=== PATIENT | male | born 1935 | race Asian ===

== ENCOUNTER 2018-01-02 16:17 | Observation (INO) | payer OTHER ==
--- NOTE | 2018-01-02 16:23 | PDOC ---
History of Present Illness - General Chief Complaint: Weakness Stated Complaint: LEFT LEG WEAKNESS SLIGHT LEFT FACIAL TINGLING Time Seen by Provider: 01/02/18 16:22 History Source: Patient Exam Limitations: No Limitations - History of Present Illness Initial Comments: 01/02/18 16:48 82y M no known pmhx (Beside recent dx of shingles) presents with ~2 days of weakness/slurred speech. Pt states that he has been feeling fine wit hthe exception of when he is going for a walk with his , he noticed he has started veering to the left. He also noticed that when he speaks, he feels it is off. He notes his symptoms were very subtle and he wasnt sure what to make of it, but today, he was walking with his when he stumbled over a very small uneveness in the ground (Which noramlly would not give him any problems) so he decided to come to the ED. The pt deneis any headache, dizzines,s vision changes, cp, sob, palpitations, nv, fever/chills, abd pain, back pain, hneck pain, lightheadedness, numbness tingling or suzie weakness, lower extremity swelling. tPA Exclusion Checklist 0-3hr - Time Elapsed Date last known well: 12/31/17 Time last known well: 16:00 Elaspsed time: 2 Day(s) and 3 Hour(s) and 27 Minutes - Thrombolytic Therapy Candidate Is the patient eligible for Thrombolytic Therapy?: No - Ineligibility reason(s) Reasons No tPA given: Outside of window - delayed arrival NIH Stroke Scale - Last Known Well Date/Time & Onset Date Last Known Well: 12/31/17 Time Last Known Well: 18:00 (estimated) - Initial Evaluation Level of consciousness: Alert Ask patient the month and their age: Answers both correctly Ask patient to open & close eyes; make fist and let go: Obeys both correctly Best gaze (horizontal eye movement): Normal Visual field testing: No visual field loss Facial paresis (Show teeth/raise eyebrows/close eyes tight): Normal symmetrical movement Motor Function: Left Arm: Normal Motor Function: Right Arm: Normal (extends arm 90 (or 45) degrees for 10 seconds without drift Motor Function: Left Leg: Normal (extends leg 30 degrees for 5 seconds without drift) Motor Function: Right Leg: Normal (extends leg 30 degrees for 5 seconds without drift) Limb Ataxia: No ataxia Sensory(Use pinprick test arms,legs,trunk,face/side to side): Normal Best language (Describe picture, name items, read sentences): No Aphasia Dysarthria (read several words): Normal articulation Extinction and Inattention: No abnormality - Total Score NIH Stroke Scale Score: 0 Past History - Past Medical History Allergies/Adverse Reactions: Allergies Allergy/AdvReac Type Severity Reaction Status Date / Time No Known Allergies Allergy Unverified 01/02/18 16:20 Home Medications: Ambulatory Orders NK [No Known Home Medication] 01/02/18 Review of Systems - Review of Systems Able to Perform ROS?: Yes Comments:: 01/02/18 16:55 Constitutional - no reported Fever, Chills, HEENT: no reported vision changes, sore throat Respiratory: no reported cough, sob, hemoptysis Cardiac: no reported chest pain, palpitations, light headedness, leg swelling Abd/GI: no reported abd pain, nausea, vomiting, blood per rectum, melena, diarrhea : no reported dysuria, frequency, discharge Musculskelatal - no reported back pain, joint swelling skin - no reported bruising, erythema, rash neurological:weakness, slurred speech no reported headache, numbness, focal weakness, tingling, ataxia, hematologic: no reported easy bruising, easy bleeding *Physical Exam - Physical Exam Comments: 01/02/18 16:57 GENERAL: The patient is awake, alert, and fully oriented, Nontoxic - in no acute distress. HEAD: Normocephalic, atraumatic. EYES: extraocular movements intact, sclera anicteric, conjunctiva clear. ENT: Normal voice, Moist mucous membranes. NECK: Normal range of motion, supple LUNGS: Breath sounds equal, clear to auscultation bilaterally. No wheezes, no rhonchi, no rales. HEART: Regular rate and rhythm, normal S1 and S2 without murmur, rub or gallop. ABDOMEN: Soft, nontender, normoactive bowel sounds. No guarding, no rebound. No CVA tenderness EXTREMITIES: Normal range of motion, no edema. No clubbing or cyanosis. No cords, erythema, or tenderness. PSYCH: Normal mood, normal affect. SKIN: Warm, Dry, normal turgor NEURO: Mental status: The patient is oriented x3. Cranial nerves: Cranial nerves II through XII are intact Motor: The upper extremities are 5 over 5 in all muscle groups. The lower extremities are 5 over 5 in all muscle groups. Negative pronator drift Sensation: Sensation is intact to light touch throughout. romberg negative Cerebellar: Mqqune-casrjb-[id number] is normal in both upper extremities. Heel-knee- blandon is normal in both lower extremities. rapid alternating movements are normal. Gait: Normal. Heart Score/ECG Review - ECG Impressions Comment:: 01/02/18 16:58 Twelve-lead EKG was performed and reviewed by me. There is normal sinus rhythm with a normal rate. Rate of 77 The axis is normal. The intervals are normal. There is normal R wave progression There are no ST or T wave abnormalities. Impression: Normal twelve-lead EKG ED Treatment Course - LABORATORY CBC & Chemistry Diagram: 01/02/18 16:54 01/02/18 16:54 Medical Decision Making - Medical Decision Making 01/02/18 16:58 82-year-old gentleman no significant past medical history presenting with complaint of symptoms concerning for CVA. His exam is essentially unremarkable with a normal neurologic exam. Suspicious for mild CVA. Will obtain CT head, blood work will discuss with neurology Will obtain labs, ekg will reassess 01/02/18 18:[address] neg for bleed on my read - will give ASA will discuss with neurology regarding disposition 01/02/18 18:[address] Washington requests observation with MRI in the morning. Dr. washington on his way to see the pt. consult place din computer *DC/Admit/Observation/Transfer Diagnosis at time of Disposition: Weakness Hypertension Qualifiers: Hypertension type: unspecified Qualified Code(s): I10 - Essential (primary) hypertension - Referrals Referrals: Danisha Washington MD [Staff Physician] - - Patient Instructions - Post Discharge Activity
[2018-01-02 17:05] LABS: BASO % 0.4 % (0-2.0); EOS % 1.4 % (0-4.5); HEMATOCRIT 41.7 % (35.4-49); HEMOGLOBIN 13.8 GM/dl (11.7-16.9); LYMPH % 36.1 % (8-40); MCH 31.5 pg (25.7-33.7); MEAN CELL VOLUME 95.7 fl (80-96); MONO % 10.5 % (3.8-10.2); NEUT % 51.6 % (42.8-82.8); PLATELET COUNT 181 K/MM3 (134-434); RBC 4.36 M/mm3 (4.00-5.60); RDW 12.9 % (11.9-15.9); WHITE BLOOD COUNT 5.8 K/mm3 (4.0-10.8)
[2018-01-02 17:15] LABS: INR 1.08 (0.82-1.09); PROTHROMBIN TIME (PATIENT) 12.1 SEC (10.2-13.0)
[2018-01-02 17:22] LABS: PH,URINE 6.5 (4.5-8); URINE APPEARANCE Clear; URINE BILIRUBIN Negative (NEGATIVE); URINE COLOR Yellow; URINE GLUCOSE (UA) Negative (NEGATIVE); URINE KETONE Negative (NEGATIVE); URINE LEUK ESTERASE Negative (NEGATIVE); URINE NITRITE Negative (NEGATIVE); URINE PROTEIN Negative (NEGATIVE); URINE UROBILINOGEN 0.2 (0.2-1.0)
[2018-01-02 17:30] LABS: ALBUMIN 3.8 g/dl (3.5-5.0); ALK PHOS 56 U/L (32-92); ANION GAP 7 (8-16); BILIRUBIN,TOTAL 0.7 mg/dl (0.2-1.0); BLOOD UREA NITROGEN 19 mg/dl (7-18); CHLORIDE 106 mmol/L (98-107); CO2 28 mmol/L (22-28); CREATININE 1.3 mg/dl (0.6-1.3); GLUCOSE,RANDOM 95 mg/dl (74-106); POTASSIUM 4.1 mmol/L (3.5-5.1); SGOT/AST 18 U/L (10-42); SGPT/ALT 11 U/L (10-40); SODIUM 141 mmol/L (136-145); TOT PROT 7.2 g/dl (6.4-8.3)
[2018-01-02 17:36] LABS: URINE RBC 0-2 /hpf (0-3); URINE WBC 0-1 (0-2)
[2018-01-02] MEDS ORDERED: ASPIRIN 81 MG CHEWABLE TABLETS PO ONE (18:11)
[2018-01-02] MEDS ORDERED: ASPIRIN 325 MG TABLET ONE (18:16)
--- NOTE | 2018-01-02 19:32 | PDOC ---
*Physical Exam - Vital Signs Last Vital Signs Temp Pulse Resp BP Pulse Ox 97.9 F 72 16 153/88 99 01/02/18 16:20 01/02/18 18:24 01/02/18 18:24 01/02/18 18:24 01/02/18 16:20 ED Treatment Course - LABORATORY CBC & Chemistry Diagram: 01/02/18 16:54 01/02/18 16:54 - ADDITIONAL ORDERS Additional order review: Laboratory Results 01/02/18 01/02/18 01/02/18 17:09 16:57 16:57 PT with INR INR Sodium Potassium Chloride Carbon Dioxide Anion Gap BUN Creatinine Creat Clearance w eGFR Random Glucose Calcium Total Bilirubin AST ALT Alkaline Phosphatase Creatine Kinase 68 Troponin I < 0.03 Total Protein Albumin Urine Color Yellow Urine Appearance Clear Urine pH 6.5 Ur Specific [place] 1.010 Urine Protein Negative Urine Glucose (UA) Negative Urine Ketones Negative Urine Blood Trace-intact H Urine Nitrite Negative Urine Bilirubin Negative Urine Urobilinogen 0.2 Ur Leukocyte Esterase Negative Urine RBC 0-2 Urine WBC 0-1 01/02/18 01/02/18 16:54 16:54 PT with INR 12.1 INR 1.08 Sodium 141 Potassium 4.1 Chloride 106 Carbon Dioxide 28 Anion Gap 7 L BUN 19 H Creatinine 1.3 Creat Clearance w eGFR 52.85 Random Glucose 95 Calcium 9.0 Total Bilirubin 0.7 AST 18 ALT 11 Alkaline Phosphatase 56 Creatine Kinase Troponin I Total Protein 7.2 Albumin 3.8 Urine Color Urine Appearance Urine pH Ur Specific [place] Urine Protein Urine Glucose (UA) Urine Ketones Urine Blood Urine Nitrite Urine Bilirubin Urine Urobilinogen Ur Leukocyte Esterase Urine RBC Urine WBC 01/02/18 16:54 RBC 4.36 MCV 95.7 MCHC 33.0 RDW 12.9 MPV 7.0 L Neutrophils % 51.6 Lymphocytes % 36.1 Monocytes % 10.5 H Eosinophils % 1.4 Basophils % 0.4 - Medications Given in the ED: ED Medications Discontinued Medications Generic Name Dose Route Start Last Admin Trade Name Freq PRN Reason Stop Dose Admin Aspirin 324 mg 01/02/18 18:11 01/02/18 18:17 Asa - PO 01/02/18 18:12 324 mg ONCE ONE Administration *DC/Admit/Observation/Transfer Diagnosis at time of Disposition: Weakness Hypertension Qualifiers: Hypertension type: unspecified Qualified Code(s): I10 - Essential (primary) hypertension - Discharge Dispostion Decision to Admit order: Yes - Referrals Referrals: Danisha Washington MD [Staff Physician] - - Patient Instructions - Post Discharge Activity
--- NOTE | 2018-01-02 19:42 | CON.NEURO ---
Consult Consult Specialty:: [facility] Referred by:: Jeancarlos - History of Present Illness History of Present Illness: 82 man pleasant Very pleasant man with no medical history Seen patient in [facility] ER Feels much better is at the bedside No fall No recent travel - History Source History Provided By: Patient Limitations to Obtaining History: No Limitations - Alcohol/Substance Use Hx Alcohol Use: Yes (RARE) - Smoking History Smoking history: Never smoked Have you smoked in the past 12 months: No Home Medications - Allergies Allergies/Adverse Reactions: Allergies Allergy/AdvReac Type Severity Reaction Status Date / Time No Known Allergies Allergy Unverified 01/02/18 16:20 - Home Medications Home Medications: Ambulatory Orders NK [No Known Home Medication] 01/02/18 Family Disease History - Family Disease History Family History: Denies (CVA) Review of Systems - Review of Systems Constitutional: reports: No Symptoms Eyes: reports: No Symptoms Neurological: reports: Incoordination, Numbness Physical Exam-Neuro Vital Signs: Vital Signs Temperature 97.9 F 01/02/18 16:20 Pulse Rate 72 01/02/18 18:24 Respiratory Rate 16 01/02/18 18:24 Blood Pressure 153/88 01/02/18 18:24 O2 Sat by Pulse Oximetry (%) 99 01/02/18 16:20 Constitutional: Yes: Well Nourished Neck: Yes: WNL Labs: CBC, BMP 01/02/18 16:54 01/02/18 16:54 INR, PTT INR 1.08 (0.82-1.09) 01/02/18 16:54 - Neuro Exam Eyes: Yes: PERRLA Speech: WNL Dominant Hand: Right Cranial Nerves II-XII Intact: Yes Gag: Present DTR's: 1+ Left Bicep, 1+ Right Bicep, 1+ Left Brachioradialis, 1+ Right Brachioradialis Response to light touch: Normal Response to pain prick: Normal Response to temperature: Normal Response to vibration: Normal Coordination: Normal: Finger to Nose Motor Strength: 4/5: Left Arm, Right Arm, Left Leg, Right Leg Gait: Deferred NIH Stroke Scale - Initial Evaluation Level of consciousness: Alert Ask patient the month and their age: Answers both correctly Ask patient to open & close eyes; make fist and let go: Obeys both correctly Best gaze (horizontal eye movement): Normal Visual field testing: No visual field loss Facial paresis (Show teeth/raise eyebrows/close eyes tight): Normal symmetrical movement Motor Function: Left Arm: Normal Motor Function: Right Arm: Normal (extends arm 90 (or 45) degrees for 10 seconds without drift Motor Function: Left Leg: Normal (extends leg 30 degrees for 5 seconds without drift) Motor Function: Right Leg: Normal (extends leg 30 degrees for 5 seconds without drift) Limb Ataxia: No ataxia Sensory(Use pinprick test arms,legs,trunk,face/side to side): Normal Best language (Describe picture, name items, read sentences): No Aphasia Dysarthria (read several words): Normal articulation Extinction and Inattention: No abnormality - Total Score NIH Stroke Scale Score: 0 Imaging - Results Cat Scan: Image Reviewed Problem List - Problems (1) Weakness Assessment/Plan: ?? Cerebellar CVA 1. Fall precaution 2. MRI [place] with no Pierre 3. ASA 4 .Statin 5. Am lipid 6. Homocystenine Code(s): R53.1 - WEAKNESS
[2018-01-02] MEDS ORDERED: DEXTROSE 5%-0.45% SALINE 1,000 ML IV SCH (20:30)
[2018-01-02 22:18] VITALS: BMI 17.9
--- NOTE | 2018-01-02 23:31 | HP ---
CHIEF COMPLAINT: Slurred Speech, Ataxia PCP: HISTORY OF PRESENT ILLNESS: This is a 82 y/o man with a PMHx of Gout, Shingles. Who presents to the ED with slurred speech, and an ataxic gait x 3 days ago. Patient reports that his noted a change in his speech. Patient reports that his gait swayed toward his left side. Patient reports recent illness of Shingles and Gout-resolved. Patient denies numbness, tingling, weakness,and blurred vision. Patient denies fever, chills, PRUETT, SOB, CP, AP, N/V/D, constipation, dysuria. ER course was notable for: (1) Head CT- Neg ICH, mass or lesion (2) Chest Xray- no infiltrate or effusion (3) Recent Travel: None PAST MEDICAL HISTORY: See HPI PAST SURGICAL HISTORY: None Social History: Smoking: Never Alcohol: Seldom Drugs: None Resides with spouse, retired Family History: Mother: Dementia Sister: Memory Impairment Allergies No Known Allergies Allergy (Unverified 01/02/18 16:20) HOME MEDICATIONS: Home Medications Medication Instructions Recorded NK [No Known Home Medication] 01/02/18 REVIEW OF SYSTEMS CONSTITUTIONAL: Absent: fever, chills, diaphoresis, generalized weakness, malaise, loss of appetite, weight change HEENT: Absent: rhinorrhea, nasal congestion, throat pain, throat swelling, difficulty swallowing, mouth swelling, ear pain, eye pain, visual changes CARDIOVASCULAR: Absent: chest pain, syncope, palpitations, irregular heart rate, lightheadedness , peripheral edema RESPIRATORY: Absent: cough, shortness of breath, dyspnea with exertion, orthopnea, wheezing, stridor, hemoptysis GASTROINTESTINAL: Absent: abdominal pain, abdominal distension, nausea, vomiting, diarrhea, constipation, melena, hematochezia GENITOURINARY: Absent: dysuria, frequency, urgency, hesitancy, hematuria, flank pain, genital pain MUSCULOSKELETAL: Absent: myalgia, arthralgia, joint swelling, back pain, neck pain SKIN: Absent: rash, itching, pallor HEMATOLOGIC/IMMUNOLOGIC: Absent: easy bleeding, easy bruising, lymphadenopathy, frequent infections ENDOCRINE: Absent: unexplained weight gain, unexplained weight loss, heat intolerance, cold intolerance NEUROLOGIC: ataxic gait, slurred speech Absent: headache, focal weakness or paresthesias, dizziness, seizure, mental status changes, bladder or bowel incontinence PSYCHIATRIC: Absent: anxiety, depression, suicidal or homicidal ideation, hallucinations. PHYSICAL EXAMINATION Vital Signs - 24 hr 01/02/18 01/02/18 01/02/18 16:20 18:24 22:00 Temperature 97.9 F 98.2 F Pulse Rate 74 79 Pulse Rate [ 72 Apical] Respiratory 18 16 18 Rate Blood Pressure 161/85 147/80 Blood Pressure 153/88 [Left Arm] Blood Pressure 149/92 [Right Arm] O2 Sat by Pulse 99 100 Oximetry (%) GENERAL: Awake, alert, and fully oriented, in no acute distress. HEAD: Normal with no signs of trauma. EYES: Pupils equal, round and reactive to light, extraocular movements intact, sclera anicteric, conjunctiva clear. No lid lag. EARS, NOSE, THROAT: Ears normal, nares patent, oropharynx clear without exudates. Moist mucous membranes. NECK: Normal range of motion, supple without lymphadenopathy, JVD, or masses. LUNGS: Breath sounds equal, clear to auscultation bilaterally. No wheezes, and no crackles. No accessory muscle use. HEART: Regular rate and rhythm, normal S1 and S2 without murmur, rub or gallop. ABDOMEN: Soft, nontender, not distended, normoactive bowel sounds, no guarding, no rebound, no masses. No hepatomegaly or splenomegaly. MUSCULOSKELETAL: Normal range of motion at all joints. No bony deformities or tenderness. No CVA tenderness. UPPER EXTREMITIES: 2+ pulses, warm, well-perfused. No cyanosis. No clubbing. No peripheral edema. LOWER EXTREMITIES: 2+ pulses, warm, well-perfused. No calf tenderness. No peripheral edema. NEUROLOGICAL: Slight L- facial droop, Cranial nerves II-XII intact. Normal speech. Gait not observed. +Finger Finger Nose test. PSYCHIATRIC: Cooperative. Good eye contact. Appropriate mood and affect. SKIN: Warm, dry, normal turgor, no rashes or lesions noted, normal capillary refill. Laboratory Results - last 24 hr 01/02/18 01/02/18 01/02/18 16:54 16:54 16:54 WBC 5.8 RBC 4.36 Hgb 13.8 Hct 41.7 MCV 95.7 MCH 31.5 MCHC 33.0 RDW 12.9 Plt Count 181 MPV 7.0 L Absolute Neuts (auto) 3.0 Neutrophils % 51.6 Lymphocytes % 36.1 Monocytes % 10.5 H Eosinophils % 1.4 Basophils % 0.4 PT with INR 12.1 INR 1.08 Sodium 141 Potassium 4.1 Chloride 106 Carbon Dioxide 28 Anion Gap 7 L BUN 19 H Creatinine 1.3 Creat Clearance w eGFR 52.85 Random Glucose 95 Calcium 9.0 Total Bilirubin 0.7 AST 18 ALT 11 Alkaline Phosphatase 56 Creatine Kinase Troponin I Total Protein 7.2 Albumin 3.8 Urine Color Urine Appearance Urine pH Ur Specific [place] Urine Protein Urine Glucose (UA) Urine Ketones Urine Blood Urine Nitrite Urine Bilirubin Urine Urobilinogen Ur Leukocyte Esterase Urine RBC Urine WBC 01/02/18 01/02/18 01/02/18 16:57 16:57 17:09 WBC RBC Hgb Hct MCV MCH MCHC RDW Plt Count MPV Absolute Neuts (auto) Neutrophils % Lymphocytes % Monocytes % Eosinophils % Basophils % PT with INR INR Sodium Potassium Chloride Carbon Dioxide Anion Gap BUN Creatinine Creat Clearance w eGFR Random Glucose Calcium Total Bilirubin AST ALT Alkaline Phosphatase Creatine Kinase 68 Troponin I < 0.03 Total Protein Albumin Urine Color Yellow Urine Appearance Clear Urine pH 6.5 Ur Specific [place] 1.010 Urine Protein Negative Urine Glucose (UA) Negative Urine Ketones Negative Urine Blood Trace-intact H Urine Nitrite Negative Urine Bilirubin Negative Urine Urobilinogen 0.2 Ur Leukocyte Esterase Negative Urine RBC 0-2 Urine WBC 0-1 ASSESSMENT/PLAN: This is a 82 y/o man placed in Tele Observation for Weakness r/o CVA/TIA for further evaluation of their emergent condition. Plan: 1. Weakness/Ataxia - r/o CVA vs TIA - NIHSS 1 - Cardiac monitoring - Head CT- neg ICH - Neurology following - MRI Head scheduled for am - Fall Precautions - CBC, BMP, Lipid Panel, Homocysteine, B12 level in am - Swallow eval - Asa given in ED will continue - Statin - Consider Echo, Carotid doppler if condition worsens - PT eval 2. FEN - PO Fluids as tolerated - Replete lytes prn - Low Na, Low Cholesterol Diet 3. DVT ppx - OOB - SCDs Code Status: Full Code Dispo: Tele Observation Problem List - Problem (1) Weakness Code(s): R53.1 - WEAKNESS (2) Hypertension Code(s): I10 - ESSENTIAL (PRIMARY) HYPERTENSION Qualifiers: Hypertension type: unspecified Qualified Code(s): I10 - Essential (primary ) hypertension Visit type - Emergency Visit Emergency Visit: Yes ED Registration Date: 01/02/18 Care time: The patient presented to the Emergency Department on the above date and was hospitalized for further evaluation of their emergent condition. - New Patient This patient is new to me today: Yes Date on this admission: 01/02/18 - Critical Care Critical Care patient: No Hospitalist Screening - Colonoscopy Questionnaire Colonoscopy Questionnaire: Colonoscopy Questionnaire - Patient: 50 - 75 years old and never had a screening colonoscopy: No History of colon or rectal polyps, or CA: No History of IBD, Crohn's disease or UC: No History of abdominal radiation therapy as a child: No - Relative: 1 with colon or rectal CA, or polyps at age 60 or younger: No Colon or rectal CA diagnosed at age 45 or younger: No Multiple relatives with colon or rectal CA: No - Outcome: Screening Result: Negative Screen
--- NOTE | 2018-01-03 08:30 | PN ---
Physical Exam: SUBJECTIVE: Patient seen and examined, Pt denies PRUETT, dizziness, blurred or double vision,dysphasia,dysphagia,cp, sob, palpitations, abdominal pain, N/V/D or urinary symptoms. OBJECTIVE: Vital Signs Period Temp Pulse Resp BP Sys/Melgar Pulse Ox Last 24 Hr 97.9 F-98.8 F 70-79 16-18 108-161/56-92 96-100 GENERAL: The patient is awake, alert, and fully oriented, in no acute distress. HEAD: Normal with no signs of trauma. EYES: PERRL, extraocular movements intact, sclera anicteric, conjunctiva clear. No ptosis. ENT: Ears normal, nares patent, oropharynx clear without exudates, moist mucous membranes. NECK: Trachea midline, full range of motion, supple. LUNGS: Breath sounds equal, clear to auscultation bilaterally, no wheezes, no crackles, no accessory muscle use. HEART: Regular rate and rhythm, S1, S2 without murmur, rub or gallop. ABDOMEN: Soft, nontender, nondistended, normoactive bowel sounds, no guarding, no rebound, no hepatosplenomegaly, no masses. EXTREMITIES: 2+ pulses, warm, well-perfused, no edema. NEUROLOGICAL: Cranial nerves II through XII grossly intact. Normal speech, gait not observed. PSYCH: Normal mood, normal affect. SKIN: Warm, dry, normal turgor, no rashes or lesions noted Laboratory Results - last 24 hr 01/02/18 01/02/18 01/02/18 16:54 16:54 16:54 WBC 5.8 RBC 4.36 Hgb 13.8 Hct 41.7 MCV 95.7 MCH 31.5 MCHC 33.0 RDW 12.9 Plt Count 181 MPV 7.0 L Absolute Neuts (auto) 3.0 Neutrophils % 51.6 Lymphocytes % 36.1 Monocytes % 10.5 H Eosinophils % 1.4 Basophils % 0.4 PT with INR 12.1 INR 1.08 Sodium 141 Potassium 4.1 Chloride 106 Carbon Dioxide 28 Anion Gap 7 L BUN 19 H Creatinine 1.3 Creat Clearance w eGFR 52.85 Random Glucose 95 Calcium 9.0 Total Bilirubin 0.7 AST 18 ALT 11 Alkaline Phosphatase 56 Creatine Kinase Troponin I Total Protein 7.2 Albumin 3.8 Urine Color Urine Appearance Urine pH Ur Specific [place] Urine Protein Urine Glucose (UA) Urine Ketones Urine Blood Urine Nitrite Urine Bilirubin Urine Urobilinogen Ur Leukocyte Esterase Urine RBC Urine WBC 01/02/18 01/02/18 01/02/18 16:57 16:57 17:09 WBC RBC Hgb Hct MCV MCH MCHC RDW Plt Count MPV Absolute Neuts (auto) Neutrophils % Lymphocytes % Monocytes % Eosinophils % Basophils % PT with INR INR Sodium Potassium Chloride Carbon Dioxide Anion Gap BUN Creatinine Creat Clearance w eGFR Random Glucose Calcium Total Bilirubin AST ALT Alkaline Phosphatase Creatine Kinase 68 Troponin I < 0.03 Total Protein Albumin Urine Color Yellow Urine Appearance Clear Urine pH 6.5 Ur Specific [place] 1.010 Urine Protein Negative Urine Glucose (UA) Negative Urine Ketones Negative Urine Blood Trace-intact H Urine Nitrite Negative Urine Bilirubin Negative Urine Urobilinogen 0.2 Ur Leukocyte Esterase Negative Urine RBC 0-2 Urine WBC 0-1 Active Medications Generic Name Dose Route Start Last Admin Trade Name Freq PRN Reason Stop Dose Admin Aspirin 81 mg 01/03/18 10:00 Asa - PO DAILY DILLAN Atorvastatin Calcium 20 mg 01/03/18 22:00 Lipitor - PO HS DILLAN * Head CT- Neg ICH, mass or lesion *Chest Xray- no infiltrate or effusion * EKG- SR ASSESSMENT/PLAN: This is a 82 y/o man with a PMHx of Gout, Shingles. Who presents to the ED with slurred speech, and an ataxic gait x 3 days. *Weakness/Ataxia- r/o CVA vs TIA - Cardiac monitoring- no cardiac events - Head CT- neg ICH - Neurology following - MRI Head scheduled for am - Fall Precautions -will cont on ASA and Statin - PT eval - labs pending - swallowing eval - Echo * F/E/N - PO Fluids as tolerated - Replete lytes prn - Low Na, Low Cholesterol Diet *DVT ppx - OOB - SCDs Code Status: Full Code Dispo: Tele Observation Visit type - Emergency Visit Emergency Visit: Yes ED Registration Date: 01/02/18 Care time: The patient presented to the Emergency Department on the above date and was hospitalized for further evaluation of their emergent condition. - New Patient This patient is new to me today: Yes Date on this admission: 01/03/18 - Critical Care Critical Care patient: No
[2018-01-03 08:47] LABS: BASO % 0.4 % (0-2.0); EOS % 1.6 % (0-4.5); HEMATOCRIT 37.2 % (35.4-49); HEMOGLOBIN 12.7 GM/dl (11.7-16.9); LYMPH % 26.5 % (8-40); MCH 32.8 pg (25.7-33.7); MCHC 34.3 g/dl (32.0-35.9); MEAN CELL VOLUME 95.9 fl (80-96); MEAN PLT VOLUME 7.8 fl (7.5-11.1); MONO % 9.1 % (3.8-10.2); NEUT % 62.4 % (42.8-82.8); PLATELET COUNT 145 K/MM3 (134-434); RBC 3.88 M/mm3 (4.00-5.60); RDW 12.4 % (11.9-15.9); WHITE BLOOD COUNT 6.1 K/mm3 (4.0-10.8)
--- NOTE | 2018-01-03 09:02 | EKG ---
Test Reason : Blood Pressure : / mmHG Vent. Rate : 077 BPM Atrial Rate : 077 BPM P-R Int : 196 ms QRS Dur : 078 ms QT Int : 368 ms P-R-T Axes : 071 050 068 degrees QTc Int : 416 ms SINUS RHYTHM WITH PREMATURE ATRIAL COMPLEXES LOW VOLTAGE QRS BORDERLINE ECG NO PREVIOUS ECGS AVAILABLE Confirmed by YENNY SANDOVAL MD ([id number]) on 01/03/2018 9:01:28 AM Referred By: MD LLOYD Confirmed By:YENNY SANDOVAL MD
[2018-01-03 09:08] LABS: ANION GAP 8 (8-16); BLOOD UREA NITROGEN 17 mg/dl (7-18); CALCIUM 8.3 mg/dl (8.4-10.2); CHLORIDE 107 mmol/L (98-107); CO2 25 mmol/L (22-28); GLUCOSE,RANDOM 83 mg/dl (74-106); MAGNESIUM 2.2 mg/dL (1.8-2.4); POTASSIUM 3.6 mmol/L (3.5-5.1); SODIUM 140 mmol/L (136-145)
[2018-01-03 09:22] LABS: CHOLESTEROL 173 mg/dl; HDL CHOLESTEROL 40 mg/dl (29-89); LDL CHOLESTEROL (ONLY DFH) 116 mg/dl; TRIGLYCERIDES 83 mg/dl (35-160)
[2018-01-03] MEDS ORDERED: ASPIRIN 81 MG CHEWABLE TABLETS PO SCH (10:00)
--- NOTE | 2018-01-03 13:58 | PN ---
Progress Note, Physician Chief Complaint: Ataxia History of Present Illness: events noted in chart reviewed Alert awake oriented Had lunch No complain No chest pain No palpitation I reviewed the MRI Positive acute stroke in the right basal ganglia Echo still pending Carotid Doppler ordered Aspirin on board Statin on board SCD ordered - Current Medication List Current Medications: Active Medications Aspirin (Asa -) 81 mg PO DAILY [facility] Last Admin: 01/03/18 09:48 Dose: 81 mg Atorvastatin Calcium (Lipitor -) 20 mg PO HS DILLAN - Objective Vital Signs: Vital Signs Temperature 98.0 F 01/03/18 10:00 Pulse Rate 77 01/03/18 10:00 Respiratory Rate 18 01/03/18 10:00 Blood Pressure 125/66 01/03/18 10:00 O2 Sat by Pulse Oximetry (%) 96 01/03/18 10:00 Constitutional: Yes: Well Nourished Eyes: Yes: WNL HENT: Yes: WNL Neurological: Yes: Alert, Oriented, Unsteady Gait ...Motor Strength: WNL Labs: CBC, BMP 01/03/18 07:10 01/03/18 07:10 INR, PTT INR 1.08 (0.82-1.09) 01/02/18 16:54 Problem List - Problems (1) Weakness Assessment/Plan: Acute CVA risks include man over 80 1. Await the stroke workup 2. Preferred to keep the patient for 24 hours 3. Fall precautions 4. Continue aspirin and statin 5. Homocysteine level Code(s): R53.1 - WEAKNESS
[2018-01-03] MEDS ORDERED: ATORVASTATIN CA 20 MG TABLET (FP) PO SCH (22:00)
[2018-01-04 06:19] VITALS: BP 121/67; PULSE 72; TEMP 98.4
--- NOTE | 2018-01-04 10:23 | DS ---
Physical Exam: SUBJECTIVE: Patient seen and examined, no complains today. OBJECTIVE: Vital Signs Period Temp Pulse Resp BP Sys/Melgar Pulse Ox Last 24 Hr 98.0 F-98.6 F 71-76 16-18 120-126/60-69 97-98 PHYSICAL EXAM GENERAL: The patient is awake, alert, and fully oriented, in no acute distress. HEAD: Normal with no signs of trauma. EYES: PERRL, extraocular movements intact, sclera anicteric, conjunctiva clear. ENT: Ears normal, nares patent, oropharynx clear without exudates, moist mucous membranes. NECK: Trachea midline, full range of motion, supple. LUNGS: Breath sounds equal, clear to auscultation bilaterally, no wheezes, no crackles, no accessory muscle use. HEART: Regular rate and rhythm, S1, S2 without murmur, rub or gallop. ABDOMEN: Soft, nontender, nondistended, normoactive bowel sounds, no guarding, no rebound, no hepatosplenomegaly, no masses. EXTREMITIES: 2+ pulses, warm, well-perfused, no edema. NEUROLOGICAL: Cranial nerves II through XII grossly intact. Normal speech, gait not observed. PSYCH: Normal mood, normal affect. SKIN: Warm, dry, normal turgor, no rashes or lesions noted. LABS Laboratory Results - last 24 hr 01/03/18 07:10 RPR Titer Nonreactive * IMAGING * Head CT- Neg ICH, mass or lesion *Chest Xray- no infiltrate or effusion * EKG- SR * MRI Brain: Acute/early subacute Rt thalamic infarct, mild chronic small vessel ischemia. HOSPITAL COURSE: Date of Admission:01/02/18 Date of Discharge: 01/04/18 This is a 82 y/o man with a PMHx of Gout, Shingles,who presents to the ED with slurred speech, and an ataxic gait x 3 days. MRI of brain ruled in for acute/ early subacute Rt thalamic infarct. Pt was evaluated by neurology Dr. Washington during the hospital stay,started on ASA and Statin which will continue as out pt and out pt neurology followup.Pt able to ambulate independently without any difficulties,steady gait.Tolerated regular diet,no signs of dysphagia noted. Pt denies cp, sob or palpitations,Echo will be done as out pt. Minutes to complete discharge: 40 Discharge Summary Reason For Visit: MUSCLE WEAKNESS (GENERALIZED),ELEVATED BLOOD-PRESS Condition: Good - Instructions Diet, Activity, Other Instructions: Low fat diet. Recommend out patient Echocardiogram. Referrals: Jaylen Bhat [Non Staff, Medical] - (as scheduled on Friday ( 01/06/18).) Danisah Washington MD [Staff Physician] - 2 Weeks Disposition: HOME - Home Medications Comprehensive Discharge Medication List: Ambulatory Orders Aspirin [ASA -] 81 mg PO DAILY #30 tab.chew 01/03/18 Atorvastatin Ca [Lipitor] 20 mg PO HS #30 tablet 01/03/18 This patient is new to me today: Yes Date on this admission: 01/04/18 Emergency Visit: Yes ED Registration Date: 01/02/18 Care time: The patient presented to the Emergency Department on the above date and was hospitalized for further evaluation of their emergent condition. Critical Care patient: No - Discharge Referral Referred to [facility] Med P.C.: No
== END 2018-01-04 09:45 | disposition home or self-care (01) ==
LOC: FER 16:17 → FM/S 19:32
PROVIDERS: ADMIT Internal Medicine; ATTEND Nurse Practitioner Family
DX: M62.81 Muscle weakness (generalized) (principal); R03.0 Elevated blood-pressure reading, without diagnosis of hypertension
CPT/HCPCS: 36415; 70450-TC; 70551-TC; 71045-TC-FY; 80048; 80053; 80061; 81003; 81015; 82550; 82607; 83036; 83090; 83735; 84100; 84443; 84484; 85025; 85610; 85651; 86593; 93005; 93880-TC; 99284-25; G0378